=== PATIENT | male | born 1980 | race Caucasian/White ===

== ENCOUNTER 2020-07-04 14:04 | Emergency (ER) | payer OTHER ==
--- NOTE | 2020-07-04 14:54 | ED ---
ENT HPI <Kamaljit Charles - Last Filed: 07/04/20 15:42> - General Source: patient, RN notes reviewed Mode of arrival: ambulatory Limitations: no limitations <Adam Hollis - Last Filed: 07/04/20 17:32> - General Chief complaint: ENT Stated complaint: throat swelling Time Seen by Provider: 07/04/20 14:21 - History of Present Illness Initial comments: Patient is a 40-year-old male that presents to emergency department complaining of right-sided mouth pain. He notes that this been going on for a few days but last night he noted that he got increasingly worse. He noted that he can still swallow his spit but it is more uncomfortable and irritating today. She did note that he does have a history of ear infections but it's been a while since she's had 1. He did mention that he did have all of his teeth pulled approximately one year ago. He was in no apparent distress while lying in bed during the exam interview. He did state that the pain was tolerable without pain medication and that he did not want any. He denied any chest pain shortness of breath headache nausea vomiting diarrhea constipation fever fatigue chills. Patient can swallow saliva at this time and during the exam. (Adam Hollis) - Related Data Previous Rx's Medication Instructions Recorded Amoxicillin/Potassium Clav 1 tab PO Q12HR #20 tab 07/04/20 [Augmentin 875-125 Tablet] Allergies Allergy/AdvReac Type Severity Reaction Status Date / Time No Known Allergies Allergy Verified 07/04/20 16:04 Review of Systems ROS Other: All systems not noted in ROS Statement are negative. <Kamaljit Charles - Last Filed: 07/04/20 15:42> ROS Other: All systems not noted in ROS Statement are negative. <Adam Hollis - Last Filed: 07/04/20 17:32> ROS Statement: Those systems with pertinent positive or pertinent negative responses have been documented in the HPI. Past Medical History Past Medical History: No Reported History History of Any Multi-Drug Resistant Organisms: None Reported Past Surgical History: No Surgical Hx Reported Past Psychological History: No Psychological Hx Reported Smoking Status: Current every day smoker Past Alcohol Use History: Occasional Past Drug Use History: Marijuana <Adam Hollis - Last Filed: 07/04/20 17:32> General Exam Limitations: no limitations General appearance: alert, in no apparent distress Head exam: Present: atraumatic, normocephalic, normal inspection Eye exam: Present: normal appearance, PERRL, EOMI. Absent: scleral icterus, conjunctival injection, periorbital swelling ENT exam: Present: normal oropharynx (Patient has moderate swelling on the right side of the soft palate/tonsil area that is erythematous), mucous membranes moist, TM's normal bilaterally, normal external ear exam Neck exam: Present: normal inspection. Absent: tenderness, meningismus, lymphadenopathy Respiratory exam: Present: normal lung sounds bilaterally. Absent: respiratory distress, wheezes, rales, rhonchi, stridor Cardiovascular Exam: Present: regular rate, normal rhythm, normal heart sounds. Absent: systolic murmur, diastolic murmur, rubs, gallop, clicks GI/Abdominal exam: Present: soft, normal bowel sounds. Absent: distended, tenderness, guarding, rebound, rigid Extremities exam: Present: normal inspection, full ROM, normal capillary refill. Absent: tenderness, pedal edema, joint swelling, calf tenderness Neurological exam: Present: alert, oriented X3, CN II-XII intact Psychiatric exam: Present: normal affect, normal mood Skin exam: Present: warm, dry, intact, normal color. Absent: rash <Adam Hollis - Last Filed: 07/04/20 17:32> Course Vital Signs 07/04/20 14:15 Temperature 99.1 F Pulse Rate 125 H Respiratory 20 Rate Blood Pressure 139/89 O2 Sat by Pulse 100 Oximetry Procedures - Incision & Drainage Consent Obtained: verbal consent Site: other (right peritonsillar space) Anesthetic Used: lidocaine 1%, with epi Amount (mLs): 2 I&D Cleaning Method: Alcohol Wipe Needle Aspiration Performed?: Yes (6 attempts with no drainage of purulent fluid) I&D Drainage Obtained: Pus, Blood Culture Obtained?: No Patient Tolerated Procedure: well <Kamaljit Charles - Last Filed: 07/04/20 15:42> Medical Decision Making <Kamaljit Charles - Last Filed: 07/04/20 15:42> - Radiology Data Radiology results: report reviewed, image reviewed <Adam Hollis - Last Filed: 07/04/20 17:32> - Medical Decision Making PA attestation: I, Dr. Kamaljit Charles, personally saw and examined the patient. I have reviewed and agree with the resident/PA findings, including all diagnostic interpretations and treatment plans as written unless otherwise stated. I was present for the leggett portions of any procedures performed and inclusive time noted for any critical care statement. Patient was evaluated at bedside along with physician assistant grocery Mr. Hollis. Briefly, patient is a 40-year-old male presents with 2 days of sore throat, voice changes, odontophagia and ear pain. Denies any trismus. She states that he did not have any sore throat prior to that. Does have poor dentition. Vital signs upon arrival shows heart rate of 125, rest of vital signs within acceptable limits. He does have a temperature 99.1. He's not showing any signs of respiratory distress. Is not drooling or having trouble breathing. Physical examination shows a deviated uvula with fullness in the right peritonsillar space. Clinical presentation concerning for peritonsillar abscess. Verbal consent was obtained prior to attempting needle aspiration in the right peritonsillar area. Multiple aid in various locations in the right peritonsillar space without any drainage of purulent fluid. Patient complaining of some changes in his voice. (Kamaljit Charles) Patient is a 40-year-old male complaining of right-sided throat pain. On inspection patient did have moderate swelling to the right side of the posterior oropharynx. Case was discussed with Dr. Charles, and needle aspiration was attempted several times to the right peritonsillar area. CT of the neck was ordered showing swelling to the right and wanting tonsil area with several microabscesses with no focal fluid. Strep test negative. Dr. Jean was consulted via phone and it was instructed to give 3 g of Un asyn, 10 mg of dexamethasone and to send patient home with Augmentin 875 twice a day for 10 days Patient can discharge home (Adma Hollis) - Lab Data Lab Results 07/04/20 Range/Units 14:59 Group A Strep Rapid Negative (Negative) - Radiology Data Heterogeneous enlargement of the right palatine tonsil likely representing microabscesses, with narrowing of the posterior oropharynx. There is no focal drainable fluid collection. (Adam Hollis) Disposition <Kamaljit Charles - Last Filed: 07/04/20 15:42> Is patient prescribed a controlled substance at d/c from ED?: No Time of Disposition: 17:32 <Adam Hollis - Last Filed: 07/04/20 17:32> Clinical Impression: Peritonsillar abscess Disposition: HOME SELF-CARE Condition: Stable Instructions (If sedation given, give patient instructions): Abscess (ED) Additional Instructions: Please return to the Emergency Department if symptoms worsen or any other concerns. Take antibiotics as prescribed until complete. If symptoms worsen please return the emergency Department. Follow-up with primary care in 3-5 days. Can take [id number] anti-inflammatories for pain management. Referrals: None,Stated [Primary Care Provider] - 1-2 days
[2020-07-04] MEDS ORDERED: AMPICILLIN-SULBACTAM 3 GM in SODIUM CHLORIDE 0.9% 100 ML IVPB STA (15:13)
[2020-07-04] MEDS ORDERED: DEXAMETHASONE SOD PHOSPHATE 10 MG/ML 1 ML VIAL IV STA (15:14)
[2020-07-04] MEDS ORDERED: LIDOCAINE 1%-EPI 1:100,000 20 ML VIAL SQ STA (15:14)
[2020-07-04] MEDS ORDERED: BENZOCAINE SPRAY 1 CAN ONE (15:25)
[2020-07-04] MEDS ORDERED: BENZOCAINE SPRAY 1 CAN TOPICAL STA (15:40)
[2020-07-04] MEDS ORDERED: MORPHINE SULFATE 4 MG/ML SYRINGE IVP STA (16:32)
--- NOTE | 2020-07-04 17:13 | CT ---
EXAMINATION TYPE: CT soft tissue neck w con DATE OF EXAM: 07/04/2020 4:33 PM COMPARISON: None HISTORY: Peritonsillar abscess CT DLP: 336.2 mGycm Automated exposure control for dose reduction was used. CONTRAST: CT scan of the neck is performed following with IV Contrast, patient injected with 100 mL of Isovue 3 00. Axial images are obtained, coronal and sagittal reformatted images are reviewed. FINDINGS: Airway: There is narrowing of the posterior oropharynx due to heterogenous enlarged right palatine to nsil with tiny regions of hypodensity and no drainable fluid collection. Parotid/submandibular glands: No gross abnormality seen. Carotid/Vascular Structures: Grossly patent. Osseous Structures: Degenerative changes of the cervical spine. Other: Minimal reactive right cervical lymphadenopathy. Lung apices are clear. IMPRESSION: Heterogenous enlargement of the right palatine tonsil likely representing microabscesses, with narrow ing of the posterior oropharynx. There is no focal drainable fluid collection.
[2020-07-04 17:41] VITALS: BP 138/71; PULSE 99; RESP 17; TEMP 98.1
== END 2020-07-04 17:41 | disposition home or self-care (01) ==
LOC: EC 14:04
DX: J36 Peritonsillar abscess (principal); F17.200 Nicotine dependence, unspecified, uncomplicated; F12.90 Cannabis use, unspecified, uncomplicated
CPT/HCPCS: 87081; 87430; 70491; 99284; 42700; 96365; 96375; J2270; J1100; J0295; Q9967